=== PATIENT | male | born 1950 | race Two or more races ===

== ENCOUNTER 2016-09-03 14:12 | Inpatient (IN) | payer MEDICARE ==
--- NOTE | 2016-09-03 16:01 | ER Document Report ---
ED General - General Chief Complaint: Blood in Catheter Stated Complaint: BLOOD IN CHRIS Mode of Arrival: Medic Information source: Patient, Relative Notes: This is a 66-year-old male who was sent to the ER for evaluation of gross blood in his Chris catheter. Patient had a Chris catheter placed one week ago secondary to urinary retention. Previously he had been instructed to self catheter however he was having difficulty and pain with this so he returned to the urology clinic and a Chris catheter with leg bag was placed. The next day patient noted some blood in his urine and return to urology for re-eval. He was instructed to just monitor for any worsening symptoms. For the past 3 days the bleeding has become more severe and today appears to be gross blood in the Chris bag. Family again to patient to the urology clinic as they were waiting in the lobby patient became weak and diaphoretic. Reportedly patient had his blood pressure checked in the urology clinic and a result of 76/42 was obtained. At this time EMS was called. Patient currently states that he feels well and feels much better than he did in the clinic. His blood pressure has been normal in the ER. Patient reports right-sided flank pain for the last few days. No fevers or chills. Normal bowel movements with occasional diarrhea. No blood in his stool. She does not take aspirin and is on no anticoagulants. TRAVEL OUTSIDE OF THE [place] IN LAST 30 DAYS: No - Related Data Allergies/Adverse Reactions: No Known Allergies Allergy (Unverified 02/10/16 17:39) Past Medical History - General Information source: Patient, [facility] Records - Social History Smoking Status: Unknown if Ever Smoked Family History: Reviewed & Not Pertinent - Past Medical History Cardiac Medical History: Reports: Hx Hypertension Musculoskeltal Medical History: Reports Hx Arthritis - Immunizations Hx Diphtheria, Pertussis, Tetanus Vaccination: No Review of Systems - Review of Systems Notes: REVIEW OF SYSTEMS: CONSTITUTIONAL : Denies fever, chills Denies recent illness. EENT: Denies eye, ear, throat, or mouth pain or symptoms. Denies nasal or sinus congestion. CARDIOVASCULAR: Denies chest pain. RESPIRATORY: Denies cough, cold, or chest congestion. Denies shortness of breath, difficulty breathing, or wheezing. GASTROINTESTINAL: As per history of present illness GENITOURINARY: As per history of present illness MUSCULOSKELETAL: Denies neck or back pain or joint pain or swelling. SKIN: Denies rash or skin lesions. HEMATOLOGIC : Denies easy bruising or bleeding. LYMPHATIC: Denies swollen, enlarged glands. NEUROLOGICAL: Denies altered mental status or loss of consciousness. PSYCHIATRIC: Denies anxiety or stress or depression. ALL OTHER SYSTEMS REVIEWED AND NEGATIVE. Physical Exam - Vital signs Vitals: Pulse Resp BP Pulse Ox 54 L 13 116/74 100 09/03/16 14:59 09/03/16 14:59 09/03/16 14:59 09/03/16 14:59 - Notes Notes: PHYSICAL EXAMINATION: GENERAL: Well-appearing, well-nourished and in no acute distress. Pleasant and conversant with concerned family in the room HEAD: Atraumatic, normocephalic. EYES: Pupils equal round and reactive to light, extraocular movements intact, sclera anicteric, conjunctiva somewhat pale ENT: nares patent, oropharynx clear without exudates. Moist mucous membranes. NECK: Normal range of motion, supple without lymphadenopathy LUNGS: Breath sounds clear to auscultation bilaterally and equal. No wheezes rales or rhonchi. HEART: Regular rate and rhythm without murmurs ABDOMEN: Soft, mild right flank tenderness to palpation, normoactive bowel sounds. No guarding, no rebound. No masses appreciated. EXTREMITIES: Normal range of motion, no pitting or edema. No cyanosis. NEUROLOGICAL: Cranial nerves grossly intact. Normal speech. No gross focal motor or sensory deficits appreciated. PSYCH: Normal mood, normal affect. SKIN: Warm, Dry, somewhat pale, no rashes or lesions noted. Course - Re-evaluation Re-evalutation: 09/03/16 17:05 Discussed the hematuria in the chris catheter with urology Dr. Mott. At this time Dr. Mott recommends replacing the 16 Turkmen Chris catheter with a larger catheter and flushing out the bladder to remove any possible clots. As long as the new catheter is draining appropriately he recommends follow-up in the office either tomorrow or the next day. - Vital Signs Vital signs: Temp Pulse Resp BP Pulse Ox 97.8 F 54 L 11 L 130/92 H 100 09/03/16 17:01 09/03/16 14:59 09/03/16 17:01 09/03/16 17:01 09/03/16 17:01 - Laboratory Result Diagrams: 09/03/16 14:46 09/03/16 14:46 Laboratory results interpreted by me: 09/03/16 09/03/16 09/03/16 14:46 14:46 14:46 RBC 3.53 L Hgb 10.3 L Hct 29.8 L Eosinophils % 14.9 H Absolute Eosinophils 1.1 H APTT 57.9 H Sodium 120.1 L* Chloride 86 L BUN 22 H Creatinine 1.69 H Est GFR ( Amer) 49 L Est GFR (Non-Af Amer) 41 L Glucose 123 H Discharge - Discharge Clinical Impression: Gross hematuria, Hyponatremia Problem with Chris catheter Qualifiers: Encounter type: initial encounter Qualified Code(s): T83.9XXA - Unspecified complication of genitourinary prosthetic device, implant and graft, initial encounter Condition: Stable Disposition: ADMITTED OBSERVATION Admitting Provider: Hospitalist - Dr Costello Unit Admitted: [facility]
[2016-09-03 16:15] LABS: ABSOLUTE BASOPHILS # (AUTO) 0.1 10^3/uL (0.0-0.2); ABSOLUTE EOSINOPHILS # (AUTO) 1.1 10^3/uL (0.0-0.6); ABSOLUTE LYMPHOCYTES (AUTO) 2.4 10^3/uL (0.5-4.7); ABSOLUTE MONOCYTES (AUTO) 0.5 10^3/uL (0.1-1.4); ABSOLUTE NEUT (AUTO) 3.2 10^3/uL (1.7-8.2); BASOPHILS % (AUTO) 0.8 % (0-2); EOSINOPHILS % (AUTO) 14.9 % (0-6); HEMATOCRIT 29.8 % (37.9-51.0); HEMOGLOBIN 10.3 g/dL (13.5-17.0); HGB HCT DIFFERENCE 1.1; LYMPHOCYTES % (AUTO) 33.8 % (13-45); MEAN CORPUSCULAR HEMOGLOBIN 29.3 pg (27.0-33.4); MEAN CORPUSCULAR HGB CONC 34.7 g/dL (32.0-36.0); MEAN CORPUSCULAR VOLUME 84 fl (80-97); MONOCYTES % (AUTO) 6.9 % (3-13); RED BLOOD COUNT 3.53 10^6/uL (4.35-5.55); SEGMENTED NEUTROPHILS % (AUTO) 43.6 % (42-78); WHITE BLOOD COUNT 7.2 10^3/uL (4.0-10.5)
[2016-09-03 16:18] LABS: PROTHROMBIN TIME 14.8 SEC (11.4-15.4)
[2016-09-03 16:19] LABS: PARTIAL THROMBOPLASTIN TIME 57.9 SEC (23.5-35.8)
[2016-09-03 16:26] LABS: ALANINE AMINOTRANSFERASE 29 U/L (21-72); ALBUMIN 3.6 g/dL (3.5-5.0); ALKALINE PHOSPHATASE 99 U/L (38-126); ANION GAP 11 (5-19); ASPARTATE AMINO TRANSFERASE 50 U/L (17-59); BILIRUBIN,DIRECT 0.3 mg/dL (0.0-0.4); BILIRUBIN,TOTAL 0.5 mg/dL (0.2-1.3); BLOOD UREA NITROGEN 22 mg/dL (7-20); CALCIUM 8.6 mg/dL (8.4-10.2); CARBON DIOXIDE 23 mmol/L (22-30); CHLORIDE 86 mmol/L (98-107); CREATININE RESULT 1.69 mg/dL (0.52-1.25); GLUCOSE 123 mg/dL (75-110); POTASSIUM 4.4 mmol/L (3.6-5.0); TOTAL PROTEIN 6.6 g/dL (6.3-8.2)
[2016-09-03 16:46] LABS: SODIUM 120.1 mmol/L (137-145)
[2016-09-03] MEDS ORDERED: NORMAL SALINE 1000 ML 1,000 ML IV ONE (19:28)
[2016-09-03] MEDS ORDERED: MORPHINE SULFATE 10 MG/ML INJ IV PRN (19:46)
[2016-09-03] MEDS ORDERED: CEFTRIAXONE 1 GM/D5W RTU 1 GM/50 ML RTUPB IV SCH (20:00)
--- NOTE | 2016-09-03 20:14 | PDOC H&P ---
History of Present Illness Admission Date/PCP: 09/03/16 18:44 LAURA SCHROEDER DO Patient complains of: blood in urine History of Present Illness: LARRY CHAKRABORTY is a 66 year old male With a known history of BPH, and indwelling Noriega catheter placed last week A few days ago patient pulled the Noriega catheter which had to be reinserted Since that time he has had gross hematuria, poor by mouth intake On the evaluation in the ED patient had a sodium of 122 He was subsequently admitted under hospitalist service for further evaluation and care ED physician contacted his urologist caring for the patient: Dr. Belle who advised to change the Noriega catheter DR Belle will follow the patient is clinic after discharge Past Medical History Cardiac Medical History: Reports: Hypertension Musculoskeltal Medical History: Reports: Arthritis Social History Information Source: Patient Lives with: Family Smoking Status: Never Smoker Frequency of Alcohol Use: None Hx Recreational Drug Use: No - Advance Directive Resuscitation Status: Full Code Surrogate healthcare decision maker:: his son Ruel Family History Family History: Reviewed & Not Pertinent Parental Family History Reviewed: Yes Children Family History Reviewed: Yes Sibling(s) Family History Reviewed.: Yes Medication/Allergy Home Medications: Tamsulosin HCl [Flomax 0.4 mg Cap.sr] 0.8 mg PO DAILY 09/03/16 Allergies/Adverse Reactions: No Known Allergies Allergy (Unverified 02/10/16 17:39) Review of Systems Constitutional: PRESENT: weakness. ABSENT: chills, fever(s), headache(s), weight gain, weight loss Eyes: ABSENT: visual disturbances Ears: ABSENT: hearing changes Cardiovascular: ABSENT: chest pain, dyspnea on exertion, edema, orthropnea, palpitations Respiratory: ABSENT: cough, hemoptysis Gastrointestinal: ABSENT: abdominal pain, constipation, diarrhea, hematemesis, hematochezia, nausea, vomiting Genitourinary: PRESENT: hematuria, other - indwelling noriega catheter. ABSENT: dysuria Musculoskeletal: ABSENT: joint swelling Integumentary: ABSENT: rash, wounds Neurological: ABSENT: abnormal gait, abnormal speech, confusion, dizziness, focal weakness, syncope Psychiatric: ABSENT: anxiety, depression, homidical ideation, suicidal ideation Endocrine: ABSENT: cold intolerance, heat intolerance, polydipsia, polyuria Hematologic/Lymphatic: ABSENT: easy bleeding, easy bruising Physical Exam Vital Signs: Temp Pulse Resp BP Pulse Ox 97.8 F 54 L 11 L 130/92 H 100 09/03/16 17:01 09/03/16 14:59 09/03/16 17:01 09/03/16 17:01 09/03/16 17:01 General appearance: PRESENT: no acute distress, well-developed, well-nourished Head exam: PRESENT: atraumatic, normocephalic Eye exam: PRESENT: conjunctiva pink, EOMI, PERRLA. ABSENT: scleral icterus Ear exam: PRESENT: normal external ear exam Mouth exam: PRESENT: moist, tongue midline Neck exam: ABSENT: carotid bruit, JVD, lymphadenopathy, thyromegaly Respiratory exam: PRESENT: clear to auscultation phil. ABSENT: rales, rhonchi, wheezes Cardiovascular exam: PRESENT: RRR. ABSENT: diastolic murmur, rubs, systolic murmur Pulses: PRESENT: normal dorsalis pedis pul Vascular exam: PRESENT: normal capillary refill GI/Abdominal exam: PRESENT: normal bowel sounds, soft. ABSENT: distended, guarding, mass, organolmegaly, rebound, tenderness Rectal exam: PRESENT: deferred Extremities exam: PRESENT: full ROM. ABSENT: calf tenderness, clubbing, pedal edema Neurological exam: PRESENT: alert, awake, oriented to person, oriented to place , oriented to time, oriented to situation, CN II-XII grossly intact. ABSENT: motor sensory deficit Psychiatric exam: PRESENT: appropriate affect, normal mood. ABSENT: homicidal ideation, suicidal ideation Skin exam: PRESENT: dry, intact, warm. ABSENT: cyanosis, rash Results Impressions: Abdomen/Pelvis CT 09/03/16 16:53 IMPRESSION: Diffuse bladder wall thickening. Moderate amount of dense material in the lumen of the bladder as well as scattered gas within the dense material, this may reflect hemorrhage from infection, neoplastic process, or mechanical factors due to the Noriega catheter. Small amount of free fluid is present in the perirectal fossa. No hydronephrosis or calcified urinary stones are identified. Urology consultation is recommended. 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 Belle who was notified Dr. Belle with follow-up the patient in his office after discharge Time Spent: 50 to 70 Minutes
[2016-09-03 20:54] LABS: PROTHROMBIN TIME 15.2 SEC (11.4-15.4)
[2016-09-03 20:56] LABS: PARTIAL THROMBOPLASTIN TIME 58.6 SEC (23.5-35.8)
[2016-09-04] MEDS ORDERED: INFLUENZA ADLT QUAD (36MOS+) 2016-17 VAC 0.5 ML SYR IM PRN (00:30)
[2016-09-04 03:31] LABS: APPEARANCE,URINE CLEAR; BILIRUBIN,URINE NEGATIVE (NEGATIVE); GLUCOSE, URINE NEGATIVE (NEGATIVE); KETONES,URINE NEGATIVE (NEGATIVE); LEUKOCYTE ESTERASE,URINE SMALL (NEGATIVE); NITRITE,URINE NEGATIVE (NEGATIVE); PROTEIN,URINE 100 mg/dL (NEGATIVE); URINE SPECIFIC GRAVITY 1.009; UROBILINOGEN,URINE NEGATIVE mg/dL (<2.0)
[2016-09-04 03:34] LABS: URINE CREATININE 40.9 mg/dL (22-328)
[2016-09-04 07:05] LABS: HEMATOCRIT 29.5 % (37.9-51.0); HEMOGLOBIN 10.3 g/dL (13.5-17.0); HGB HCT DIFFERENCE 1.4; MEAN CORPUSCULAR HEMOGLOBIN 29.2 pg (27.0-33.4); MEAN CORPUSCULAR HGB CONC 34.9 g/dL (32.0-36.0); MEAN CORPUSCULAR VOLUME 84 fl (80-97); RED BLOOD COUNT 3.53 10^6/uL (4.35-5.55); RED CELL DISTRIBUTION WIDTH 14.3 % (11.5-14.0); WHITE BLOOD COUNT 8.1 10^3/uL (4.0-10.5)
[2016-09-04 07:35] LABS: ALANINE AMINOTRANSFERASE 27 U/L (21-72); ALBUMIN 3.6 g/dL (3.5-5.0); ALKALINE PHOSPHATASE 94 U/L (38-126); ANION GAP 12 (5-19); ASPARTATE AMINO TRANSFERASE 51 U/L (17-59); BILIRUBIN,DIRECT 0.3 mg/dL (0.0-0.4); BILIRUBIN,TOTAL 0.4 mg/dL (0.2-1.3); BLOOD UREA NITROGEN 18 mg/dL (7-20); CALCIUM 8.8 mg/dL (8.4-10.2); CARBON DIOXIDE 21 mmol/L (22-30); CHLORIDE 89 mmol/L (98-107); CREATININE RESULT 1.44 mg/dL (0.52-1.25); GLUCOSE 83 mg/dL (75-110); SODIUM 122.4 mmol/L (137-145); TOTAL PROTEIN 6.7 g/dL (6.3-8.2)
[2016-09-04 16:07] VITALS: BP 106/67
--- NOTE | 2016-09-04 16:35 | PDOC DISCHARGE SUMMARY ---
General - Admit/Disc Date/PCP Admission Date/Primary Care Provider: 09/03/16 19:46 LAURA SCHROEDER, DO Discharge Date: 09/04/16 - Discharge Diagnosis (1) Gross hematuria Is this a current diagnosis for this admission?: YesSummary: Patient tolerated continuous bladder irrigation without difficulty with resolution of the gross hematuria and blood clots, urine was flowing clear in a larger 24 Portuguese triple lumen catheter which will remain in place until follow- up with Dr. Stevens, urology in the morning. (2) Hyponatremia Is this a current diagnosis for this admission?: YesSummary: Patient has been seen by Dr. Renner in the past and was encouraged to follow- up with her again, but over a year since he was seen. His sodium is at or near his baseline and his mental state is at baseline, clearly a chronic problem. - Additional Information Resuscitation Status: Full Code Discharge Diet: As Tolerated Discharge Activity: Activity As Tolerated, Balance Activity w/Rest Home Medications: Tamsulosin HCl [Flomax 0.4 mg Cap.sr] 0.8 mg PO DAILY 09/03/16 History of Present Illness Patient complains of: Blood in my urine History of Present Illness: LARRY CHAKRABORTY is a 66 year old male With a known history of BPH, and indwelling Nelson catheter placed last week A few days ago patient pulled the Nelson catheter which had to be reinserted Since that time he has had gross hematuria, poor by mouth intake Hospital Course Hospital Course: On the evaluation in the ED patient had a sodium of 122 He was subsequently admitted under hospitalist service for further evaluation and care ED physician contacted his urologist caring for the patient: Dr. tSevens who advised to change the Nelson catheter DR Stevens will follow the patient is clinic after discharge, He was admitted to the hospital and his Nelson was changed from a 16 to a 24- gauge triple lumen and to continue his bladder irrigation was continued through the night without complication. by morning his urine had cleared significantly with no further evidence of clots; his H/H remained stable overnight. At this point he is stable and asking for d/c home. he does c/o Rt buttock pain after suffering two falls at home in the past couple of weeks but I see no contusion, edema or swelling and his pain is complicated by his relative sedentary lifestyle since his falls. he has full ROM at the hips and no paresthesias or radicular pain to suggest bony or neurologic injury. his ct a/p does not show any evidence for trauma according to the radiologist. furthermore there is no evidence of hydronephrosis or hydroureter or renal contusion/hematoma to account for his hematuria though it does show a bladder mass that could be hematoma. he already has f/u appt with dr stevens scheduled in the morning and is anxious to keep that appt. 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 he is instructed to limit his fluid intake to no more than 1.5-2L/d, supplement with NaCl tablets over the counter and f/u with dr renner for further recommendations.. at this point he is stable for d/c home. Physical Exam Vital Signs: Temp Pulse Resp BP Pulse Ox 97.4 F 69 19 106/67 100 09/04/16 15:59 09/04/16 15:59 09/04/16 15:59 09/04/16 15:59 09/04/16 15:59 Intake & Output 09/03/16 09/04/16 09/05/16 06:59 06:59 06:59 Intake Total 535 118 Output Total 1875 5900 Balance -1340 -5782 Weight 72.5 kg General appearance: PRESENT: no acute distress Eye exam: PRESENT: EOMI Mouth exam: PRESENT: moist Neck exam: ABSENT: JVD Respiratory exam: PRESENT: clear to auscultation phil. ABSENT: accessory muscle use Cardiovascular exam: PRESENT: RRR. ABSENT: bradycardia Pulses: PRESENT: normal carotid pulses, normal radial pulses Vascular exam: PRESENT: normal capillary refill GI/Abdominal exam: PRESENT: soft. ABSENT: guarding, tenderness Gentrourinary exam: PRESENT: indwelling catheter - clear yellow urine in the bag at present. ABSENT: scrotal swelling Extremities exam: PRESENT: other - Point tenderness over the left buttock on palpation, no overlying edema or swelling and no evidence of contusion.. ABSENT : calf tenderness Musculoskeletal exam: PRESENT: full ROM Neurological exam: PRESENT: alert, awake, oriented to person, oriented to place Results Laboratory Results: 09/04/16 06:22 09/04/16 06:22 09/03/16 09/04/16 09/04/16 20:30 02:30 02:30 WBC RBC Hgb Hct MCV MCH MCHC RDW Plt Count Sodium Potassium Chloride Carbon Dioxide Anion Gap BUN Creatinine Est GFR ( Amer) Est GFR (Non-Af Amer) Glucose Serum Osmolality 250 L Calcium Total Bilirubin AST ALT Alkaline Phosphatase Total Protein Albumin Urine Color RED Urine Appearance CLEAR Urine pH 7.0 Ur Specific [place] 1.009 Urine Protein 100 H Urine Glucose (UA) NEGATIVE Urine Ketones NEGATIVE Urine Blood LARGE H Urine Nitrite NEGATIVE Ur Leukocyte Esterase SMALL H Urine WBC (Auto) >182 Urine RBC (Auto) >182 Urine Osmolality 325 09/04/16 09/04/16 06:22 06:22 WBC 8.1 RBC 3.53 L Hgb 10.3 L Hct 29.5 L MCV 84 MCH 29.2 MCHC 34.9 RDW 14.3 H Plt Count 404 Sodium 122.4 L Potassium 5.0 Chloride 89 L Carbon Dioxide 21 L Anion Gap 12 BUN 18 Creatinine 1.44 H Est GFR ( Amer) 59 L Est GFR (Non-Af Amer) 49 L Glucose 83 Serum Osmolality Calcium 8.8 Total Bilirubin 0.4 AST 51 ALT 27 Alkaline Phosphatase 94 Total Protein 6.7 Albumin 3.6 Urine Color Urine Appearance Urine pH Ur Specific [place] Urine Protein Urine Glucose (UA) Urine Ketones Urine Blood Urine Nitrite Ur Leukocyte Esterase Urine WBC (Auto) Urine RBC (Auto) Urine Osmolality Impressions: Abdomen/Pelvis CT 09/03/16 16:53 IMPRESSION: Diffuse bladder wall thickening. Moderate amount of dense material in the lumen of the bladder as well as scattered gas within the dense material, this may reflect hemorrhage from infection, neoplastic process, or mechanical factors due to the Nelson catheter. Small amount of free fluid is present in the perirectal fossa. No hydronephrosis or calcified urinary stones are identified. Urology consultation is recommended. Qualifiers PATEINT BEING DISCHARGED WITH ANY OF THE FOLLOWING DIAGNOSIS?: No VTE patient discharged on overlapping Therapy?: No Reason(s) for not prescribing Overlap Therapy:: Medical Contraindication Plan Discharge Plan: Discharge home with catheter in place, keep scheduled appointment with urology in the morning. Case was discussed with the patient and his [id number] at the bedside who asked several excellent questions today and best my ability. They expressed no concerns about discharge home today. Time Spent: Greater than 30 Minutes
== END 2016-09-04 17:20 | disposition home or self-care (01) | DRG 699 ==
LOC: ER 14:12 → UNDOADMIN 18:44 → EH 18:44 → 3W 23:46
PROVIDERS: ADMIT Emergency Medicine; ATTEND Emergency Medicine
PROC: 3E0234Z Introduction of Serum, Toxoid and Vaccine into Muscle, Percutaneous Approach (ICD-10-PCS; principal; 2016-09-04)
DX: T83.83XA Hemorrhage due to genitourinary prosthetic devices, implants and grafts, initial encounter (principal); E87.1 Hypo-osmolality and hyponatremia; R31.0 Gross hematuria; N40.0 Benign prostatic hyperplasia without lower urinary tract symptoms; N32.9 Bladder disorder, unspecified; I12.9 Hypertensive chronic kidney disease with stage 1 through stage 4 chronic kidney disease, or unspecified chronic kidney disease; N18.3 Chronic kidney disease, stage 3 (moderate); M19.90 Unspecified osteoarthritis, unspecified site; Z91.81 History of falling; Z23 Encounter for immunization
CPT/HCPCS: 36415; 51702; 74176; 80053; 81001; 82570; 83930; 83935; 84300; 85025; 85027; 85610; 85730; 87040; 87086; 90686; J0696; J2270

== ENCOUNTER → 2016-09-26 | Outpatient (CLI) | payer MEDICARE ==
[2016-09-26 11:26] LABS: CALCIUM 9.1 mg/dL (8.4-10.2); PHOSPHORUS 3.8 mg/dL (2.5-4.5)
[2016-09-27 07:34] LABS: VITAMIN D 25-HYDROXY 26.6 ng/mL (30.0-100.0)
== END ==
LOC: RAD 10:13
PROVIDERS: ATTEND Student in an Organized Health Care Education/Training Program
DX: E01.0 Iodine-deficiency related diffuse (endemic) goiter (principal); N18.4 Chronic kidney disease, stage 4 (severe)
CPT/HCPCS: 36415; 76536; 82306; 82310; 83735; 83970; 84100